=== PATIENT | male | born 1965 | race Caucasian/White ===

== ENCOUNTER → 2016-11-15 | Outpatient (CLI) | payer MEDICARE ==
[~2016-11-15] MED LIST: ANTIVERT PO; FLEXERIL; GLYBURIDE PO; LISINOPRIL10 MG; LOTREL 10/20 MG1 CAP PO; METFORMIN HCL500 M4 PO; NEURONTIN800 MG PO; PRINIVIL10 MG PO
--- NOTE | ~2016-11-15 | CR63 ---
[facility] A Service of [facility] & [facility] RADIOLOGY TEXT RESULTS PATIENT: ILIANA DOYLE LOCATION: [facility] : 63 UNIT #: [id number] AGE: [address]: Eric Simeon MD SEX: M ORDER DR: [id number] [facility] [address] [place], [place] [address] [id number] O MR#: [id number] Acc #: [id number] NAME: ILIANA DOYLE : 1965 SEX: M STUDY DATE/TIME: 11/15/2016 8:00 UNIT: [facility] ROOM: STUDY DESCRIPTION: CR Chest 2 View Attending Physician: Eric Simeon M.D. Referring Physician: Eric Simeon M.D. Ordering Physician: Eric Simeon M.D. Primary Care Physician: Enrike Gonzales M.D. MEDICAL IMAGING REPORT This report is preliminary unless electronic signature is present EXAM Chest 11/15/2016. HISTORY 49 year old male patient. Preop clearance for laparoscopic adjustable gastric band placement and possible paraesophageal hernia repair. COMPARISON Chest 08/14/2012. FINDINGS Two-view chest demonstrates large body habitus. Cardiac size and configuration are normal. Hilar structures and mediastinal contours are preserved. Bilateral lungs are expanded and clear. IMPRESSION Negative chest. Large body habitus. Previous anterior lower cervical fusion. Dictated by... Tito Turcois M.D. THIS IS AN ELECTRONICALLY VERIFIED REPORT Tito Turcios M.D. at 11/15/2016 9:00 AM Andrew TD: 11/15/2016 08:52 JOB #: [id number] MEDICAL IMAGING REPORT Page 1 of 1 COPY
--- NOTE | ~2016-11-15 | CR97 ---
[facility] A Service of [facility] RADIOLOGY TEXT RESULTS PATIENT: ILIANA DOYLE [id number] 63 UNIT #: [id number] AGE: [address]: Eric Simeon MD SEX: M ORDER DR: [id number] [place] [id number] [facility]. [place], [place] [address] [id number] O MR#: [id number] Acc #: [id number] NAME: ILIANA DOYLE : 1965 SEX: M STUDY DATE/TIME: 11/15/2016 8:55 UNIT: [facility] ROOM: STUDY DESCRIPTION: CR Esophagram Attending Physician: Eric Simeon M.D. Referring Physician: Eric Simeon M.D. Ordering Physician: Eric Simeon M.D. Primary Care Physician: Enrike Gonzales M.D. MEDICAL IMAGING REPORT This report is preliminary unless electronic signature is present EXAM Esophagram with fluoroscopy date: 11/15/2016. HISTORY Preop evaluation for gastric banding procedure. Evaluate for possible parasagittal hernia. Diabetic. COMPARISON None. FINDINGS Following the ingestion of thin barium, multiple spot fluoroscopic images were obtained, targeted to the esophagogastric junction, in various projections. There is normal distensibility of the thoracic esophagus without stricture. No hiatal hernia. Normal peristaltic stripping wave. No mass lesion is seen. 35 images were obtained. Total fluoroscopy time 0.3 minutes. IMPRESSION Normal esophagram. Dictated by... Yessi Quezada M.D. THIS IS AN ELECTRONICALLY VERIFIED REPORT Yessi Quezada M.D. at 11/18/2016 8:31 AM CORNELL/jovana TD: 11/15/2016 11:53 JOB #: [id number] [facility] A Service of [facility] & [facility] RADIOLOGY TEXT RESULTS PATIENT: ILIANA DOYLE [id number] : [birth year] UNIT #: [id number] AGE: [address]: Eric Simeon MD SEX: M ORDER DR: MEDICAL IMAGING REPORT Page 1 of 1 COPY
--- NOTE | ~2016-11-15 | EKG ---
PATIENT: ILIANA DOYLE UNIT #: [id number] Ventricular Rate: 78 BPM Atrial Rate: 78 BPM P-R Interval: 178 ms QRS Duration: 96 ms Q-T Interval: 376 ms QTC Calculation(Bezet): 428 ms P Woodland: 50 degrees Calculated R Woodland: 47 degrees Calculated T Woodland: 32 degrees Diagnosis Line: Normal sinus rhythm Diagnosis Line: Normal ECG Diagnosis Line: No previous ECGs available Diagnosis Line: Confirmed by GUIDO PALMA MD ([id number]) on Diagnosis Line: 11/16/2016 4:25:18 PM INTERPRETING MD: MINERVA LOPEZ
[2016-11-15 09:32] LABS: HEMATOCRIT 46.4 % (38.0-50.0); HEMOGLOBIN 15.3 gm/dL (13.0-16.0); MEAN CELL VOLUME 93.6 FL (83-96); MEAN CORPUSCULAR HEMOGLOBIN 30.9 PG (28-34); MEAN PLATELET VOLUME 8.3 FL (6.5-11.5); RED BLOOD COUNT 4.96 X10e (3.90-5.60); RED CELL DISTRIBUTION WIDTH 14.2 % (11.0-15.5); WHITE BLOOD COUNT 6.9 X10e3 (4.0-10.5)
[2016-11-15 10:22] LABS: BILIRUBIN,TOTAL 0.6 mg/dL (0.2-2.0); BUN/CREATININE RATIO 12.22; CALCIUM SERUM 8.6 mg/dL (8.4-10.2); CREATININE SERUM 0.9 mg/dL (0.6-1.4); GLOM FILT RATE Estimated 97.9 mL/min (>60); POTASSIUM 4.3 mmol/L (3.5-5.1); PROTEIN TOTAL SERUM 7.4 g/dL (6.0-8.3)
== END | disposition home or self-care (01) ==
LOC: CRAD 07:42 → CAMB 09:00
PROVIDERS: Surgery
DX: Z01.818 Encounter for other preprocedural examination (principal)
CPT/HCPCS: 36415; 71020; 74220; 80053; 80061; 84443; 85027; 93005

== ENCOUNTER → 2016-11-27 | Day surgery (SDC) | payer MEDICARE ==
--- NOTE | ~2016-11-27 | OR ---
Unit #: [id number] #: [id number] Patient: ILIANA DOYLE [id number] [address] [address] [id number] O MR#: [id number] NAME: ILIANA DOYLE ROOM: Date of Procedure: 11/27/2016 Admission Date: 11/27/2016 Surgeon: Eric Simeon M.D. : 1965 Attending Physician: Eric Simeon M.D. Primary Care Physician: Enrike Gonzales M.D. OPERATIVE REPORT PREOPERATIVE DIAGNOSIS Chronic morbid obesity, body mass index of 47. POSTOPERATIVE DIAGNOSES 1. Chronic morbid obesity, body mass index of 47. 2. Paraesophageal hiatal hernia. PROCEDURES PERFORMED 1. Laparoscopic adjustable gastric band. 2. Laparoscopic paraesophageal hiatal hernia repair. 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 ANESTHESIA General endotracheal anesthesia. ESTIMATED BLOOD LOSS Minimal. IV FLUIDS 800 crystalloid. COMPLICATIONS None. INDICATIONS FOR PROCEDURE The patient is a 51-year-old with chronic morbid obesity. DESCRIPTION OF PROCEDURE The patient was taken to the operating room and placed in supine position. General anesthesia was induced. The abdomen was prepped and draped. A 3-cm incision was then made left of the midline. A 10-mm Visiport was then placed intraabdominal under direct vision. The abdomen was insufflated to 15 mmHg with CO2. The patient was then placed in a steep reversed Trendelenburg. General inspection of the abdomen revealed what appeared to be a paraesophageal hernia. This was identified with a defect at the diaphragm using anterior palpation with the instrument. We then made a small incision in the subxiphoid region. A Karely liver retractor was then placed intraabdominal and used to retract the left lobe of the liver upward to further expose the paraesophageal hernia and GE junction. I then placed a 5-mm port in the right upper quadrant, a 10-mm Unit #: [id number] #: [id number] Patient: ILIANA DOYLE port in the left upper quadrant, and another 5-mm port in the left lower quadrant. The stomach was retracted medial and downward. Upon retracting the stomach, we took down the paraesophageal ligament, exposing the right and left mellissa at the paraesophageal hernia. Any hernia sac was reduced. We then repaired the paraesophageal hernia using interrupted #0 Ethibond sutures in a rrcslu-mr-cvasx type fashion. This formed a snug repair to the anterior esophagus. We then retracted the stomach medially and further exposed the angle of His using Bovie electrocautery. The stomach was then retracted laterally. We then took down the hepatogastric ligament with Bovie electrocautery. This exposed the right mellissa. Using blunt dissection, I created a retrogastric tunnel from this point to the angle of His. The band was then placed intraabdominal through the 10-mm port site. This was then brought through the retrogastric tunnel in a pars flaccida technique. The band was then closed anteriorly to form a 20-mL to 25-mL anterior gastric pouch. The fundus was then secured to the anterior pouch to prevent movement around the stomach using two interrupted #0 Ethibond sutures. A third suture was then used as a gathering stitch from the lesser curve to the anterior stomach, gathering and imbricating the remaining fundus of the stomach. The tubing was then brought out through the midline 10-mm port site. All ports and the Karely liver retractor were removed under direct vision with no evidence of abdominal hemorrhage. A polypropylene mesh was then secured to the posterior face of the laparoscopic band port. This was secured using #0 Ethibond suture. This was then cut to shape. The port was then connected to the tubing and placed into a subcutaneous pocket just anterior to the rectus sheath. Its position was then confirmed. All tubing was then placed intraabdominal. The wounds were then closed with interrupted 4-0 Vicryl. The patient tolerated the procedure well and was sent to the recovery room in good condition. Dictated by... Joanna Dominguez/david TD: 11/27/2016 17:49 JOB #: [id number] OPERATIVE REPORT Page 1 of 1 X Eric Simeon MD X PROCEDURE OPERATIVE NOTE
--- NOTE | ~2016-11-27 | CR7 ---
[facility] A Service of [facility] & [facility] RADIOLOGY TEXT RESULTS PATIENT: ILIANA DOYLE LOCATION: [facility] : [birth year] UNIT #: [id number] AGE: [address]: Eric Simeon MD SEX: M ORDER DR: [id number] [facility] [address] [place], [place] [address] [id number] O MR#: [id number] Acc #: [id number] NAME: ILIANA DOYLE : 1965 SEX: M STUDY DATE/TIME: 11/27/2016 9:46 UNIT: [facility] ROOM: STUDY DESCRIPTION: CR Abdomen Single AP View Attending Physician: Eric Simeon M.D. Ordering Physician: Eric Simeon M.D. Primary Care Physician: Enrike Gonzales M.D. MEDICAL IMAGING REPORT This report is preliminary unless electronic signature is present EXAM Supine radiograph of the abdomen, 11/27/2016 HISTORY Postop Lap-Band, PACU back. FINDINGS Supine radiograph of the abdomen is presented. Comparison to esophagram 11/15/2016. Interval placement of Lap-Band device incompletely visualized on this radiograph. The band component is at the level of gastroesophageal junction based upon prior esophagram. Band component oriented approximately 67 degrees from the vertical. The incompletely visualized catheter component appears radiographically intact. Port component not included on field of view. Visualized bowel gas pattern normal. No free air. Lung bases clear. Heart upper limits of normal in size. Dictated by... Eric Wong M.D. THIS IS AN ELECTRONICALLY VERIFIED REPORT Eric Wong M.D. at 11/28/2016 6:32 PM SHAWANDA/carol TD: 11/27/2016 12:58 JOB #: [id number] MEDICAL IMAGING REPORT Page 1 of 1 COPY
== END | disposition home or self-care (01) ==
LOC: CSUR 06:09
DX: E66.01 Morbid (severe) obesity due to excess calories (principal); K44.9 Diaphragmatic hernia without obstruction or gangrene; E11.9 Type 2 diabetes mellitus without complications; I10 Essential (primary) hypertension; G47.30 Sleep apnea, unspecified; Z68.42 Body mass index [BMI] 45.0-49.9, adult; Z72.4 Inappropriate diet and eating habits; Z79.84 Long term (current) use of oral hypoglycemic drugs; Z79.899 Other long term (current) drug therapy; Z98.1 Arthrodesis status; Z98.890 Other specified postprocedural states
CPT/HCPCS: 74000; 82947; C1781; J0330; J0690; J1650; J1885; J2250; J2405; J2710; J3010